=== PATIENT | female | born 1960 | race Caucasian/White ===

== ENCOUNTER 2025-05-19 03:00 | Emergency (ER) | payer MEDICARE, BC, SELFPAY ==
[2025-05-19 03:04] VITALS: BP 144/75
[2025-05-19 03:34] VITALS: BP 141/66; BMI 35.2
--- NOTE | 2025-05-19 03:38 | ED.GENMED ---
History of Present Illness
General
Chief Complaint: Allergic Reaction
Source: patient
Exam Limitations: none
Time Seen by Provider: 05/19/25 03:29
Nursing documentation reviewed up to this point in time: agreed with
History of Present Illness
History of Present Illness:
64-year-old female presenting to the emergency department with concerns of hives that occurred roughly 3 hours ago while sleeping unsure of any exposures. She took Benadryl at home with some slight. Denies any trouble swallowing breathing and
abdominal pain no history of allergies.
Review of Systems
Review of Systems
Allergies reviewed?: Yes
All Other Systems: ROS reviewed and negative except as documented in HPI and ROS
Phy Exam
Physical Exam
Physical Exam:
GENERAL: Alert , in no apparent distress
EYE: pupils equal and reactive
NECK: Supple, no significant adenopathy.
ENT: o/p clr, mmm.
CARDIAC: Regular rate and rhythm .
LUNGS: Clear breath sounds bilaterally, no acute respiratory distress, no wheezes/rales/rhonchi
ABDOMEN: Soft, without focal tenderness, no r/g, no cvat
NEUROLOGICAL: Alert and oriented, no focal neuro deficits
SKIN: Scattered raised wheals throughout the left arm and thighs bilaterally. Warm and dry, skin intact.
MUSCULOSKELETAL: No edema, well perfused.
PSYCH: Normal and appropriate interaction.
Course
Orders/Labs/Results
Orders:
Orders
05/19/25 03:32
Dexamethasone [Decadron] 10 mg PO NOW STA
Famotidine [Pepcid] 40 mg PO NOW STA
Vital Signs
Initial and Last Documented VS:
Initial Vital Signs
Temp Pulse Resp BP Pulse Ox
99.1 F 92 20 144/75 96
05/19/25 03:04 05/19/25 03:04 05/19/25 03:04 05/19/25 03:04 05/19/25 03:04
Last Documented Vital Signs
Temp Pulse Resp BP Pulse Ox
99.1 F 92 20 121/60 96
05/19/25 03:04 05/19/25 03:04 05/19/25 03:04 05/19/25 04:00 05/19/25 04:30
MDM/Problems Addressed
MDM/Problems Addressed:
64-year-old female waking up with scattered hives at midnight, 3 hours prior to arrival. Denies any trouble swelling or breathing. No signs of anaphylaxis. Symptoms isolated to the skin. Did take Benadryl but just prior to arrival. Given
additional famotidine and dexamethasone. Vital signs normal here. The cause of reaction is unclear at this time. Patient given dose of steroid here with complete resolution of symptoms. Patient written for an EpiPen and a few days worth of
ongoing steroid and antihistamine advised for close outpatient follow-up. Return precautions given.
*Pulse Oximetry
SaO2: 96
Oxygen Mode of Delivery: Room air
Patient hypoxic: no (96)
*Critical Care Note
Total Time (30-74mins, 75-104mins- exclusive of procedures): Not Applicable
ED Attending Note
-
Portions of this chart may have been created with voice recognition software.� Occasional wrong word or��sound alike� substitutions may have occurred due to the inherent limitations of voice recognition software.
Discharge Plan
Departure
Patient Disposition: Home (Routine Discharge)
Date of Disposition: 05/19/25
Time of Disposition: 04:57
Patient with high blood pressure during this ER visit?: No
Condition: Good
Covid-19: Not Applicable
Discharge Problem:
Hives
Instructions: Hives (DC)
Prescriptions:
New
cetirizine [Zyrtec] 10 mg tablet
10 mg PO BID 4 Days Qty: 8 0RF
prednisone 20 mg tablet
40 mg PO DAILY 4 Days Qty: 8 0RF
famotidine 20 mg tablet
20 mg PO BID 4 Days Qty: 8 0RF
epinephrine [Auvi-Q] 0.3 mg/0.3 mL auto-injector
0.3 mg IM Q5-15M PRN (Reason: anaphylaxis) Qty: 2 0RF
Referrals:
UNKNOWN - PT DOES,NOT KNOW [Family Provider]
Activity Restrictions/Additional Instructions:
You came to the emergency department today with concerns of hives. Please take prescribed medications and follow-up close with the primary care doctor for further management. Return for any pain, new or concerning symptoms.
Interventions
Interventions:
*Risk Screen - Suicide Last Done: 05/19/25 03:04
*General Assessment Last Done: 05/19/25 03:34
*Neglect/Abuse Screening Last Done: 05/19/25 03:34
*ED- Fall Risk Assessment Last Done: 05/19/25 03:34
*ED COVID-19 Vaccine History Last Done: 05/19/25 03:34
ED- Cardiac Assessment Last Done: 05/19/25 03:34
ED- Pulmonary Assessment Last Done: 05/19/25 03:34
ED-Skin Assessment Last Done: 05/19/25 03:34
Discharge Date and Time
Print Language: TU[place]
[2025-05-19] MEDS: DECADRON 10 MG PO (03:45)
[2025-05-19] MEDS: PEPCID 40 MG PO (03:47)
[2025-05-19 04:00] VITALS: BP 121/60
== END 2025-05-19 05:07 | disposition home or self-care (01) ==
LOC: EMR 03:00
PROVIDERS: EMERGENCY PHYSICIAN Emergency Medicine
DX: L50.9 Urticaria, unspecified (principal)
CPT/HCPCS: 99283